=== PATIENT | female | born 1980 | race Caucasian/White ===

== ENCOUNTER 2017-02-21 10:37 | Emergency (ER) | payer SELFPAY ==
--- NOTE | 2017-02-26 07:21 | ER ---
ADMIT: 02/21/2017 RM/LOC: ER [facility] MR#: [id number] [facility] [address] [place] [id number] [address] [place] [address] Emergency Room Report SEX: F AGE: 36 : 1980 DATE: 02/21/2017 TIME: 1037 hours. Please refer to my T-sheet for complete H and P. Briefly, the patient comes in with left hip pain for 2-1/2 weeks. It starts in the buttocks and kind of moves to lateral and medial aspect of her thigh. No trauma, but she did go for a long car ride. No other complaints. It does hurt when she walks. She has not had a fever or chills. PHYSICAL EXAMINATION: VITAL SIGNS: Stable. Temp 97.9. GENERAL: No acute distress. HEENT: Grossly normal. ABDOMEN: Soft. EXTREMITIES: Her left leg hurts right over sciatic outlet, extends laterally and medial. There is no gross deformity. No redness or erythema. No swelling. She is neurovascularly intact distally. EMERGENCY DEPARTMENT COURSE: I gave her 2 [place] 5 p.o. She is ready for discharge. ASSESSMENT: Left sciatica. PLAN: Prednisone 20 b.i.d. for 5 days. Return if worse. Avoid putting pressure in the area. [place] 5, I gave her 15. Follow up with [address] [place] [address]. Carson Bird MD/ elva JOB #: [id number] CC: Carson Bird MD, Attending Physician UNKNOWN, Family Physician
== END 2017-02-21 11:20 | disposition home or self-care (01) ==
LOC: ER 10:37
DX: M54.32 Sciatica, left side (principal); Z88.0 Allergy status to penicillin; Z88.1 Allergy status to other antibiotic agents; Z88.8 Allergy status to other drugs, medicaments and biological substances; Z79.899 Other long term (current) drug therapy; Z87.891 Personal history of nicotine dependence

== ENCOUNTER → 2017-04-13 | Outpatient (CLI) | payer OTHER | END | disposition home or self-care (01) | LOC: PTH.S 10:04 | DX: I10 Essential (primary) hypertension (principal) ==

== ENCOUNTER 2017-05-08 17:34 | Emergency (ER) | payer OTHER ==
--- NOTE | 2017-05-11 12:41 | ER ---
ADMIT: 05/08/2017 RM/LOC: ER [facility] MR#: [id number] [id number] RISHI VIDYA [address] [place] [address] Emergency Room Report SEX: F AGE: 36 : 1980 DATE: 05/08/2017 HISTORY OF PRESENT ILLNESS: The patient is a 36-year-old, complaining of left shoulder blade pain about a week now. She kind of fell over her couch, tried to hold her son with her left hand and now she has pain that is when she takes a deep breath, she has discomfort. She is right-handed. ALLERGIES: SHE HAS MULTIPLE ALLERGIES. SEE T-SHEET FOR THAT. MILDLY ANXIOUS. PHYSICAL EXAMINATION: Normal. IMAGING: X-ray of the shoulder blade, negative. CLINICAL IMPRESSION: Left shoulder trapezius and thoracic spine sprain. The patient given a shot of Norflex and lidocaine patch to the affected area with a prescription. Follow up with primary provider. JOHNSON Reyna / Ori Harris MD / bellel JOB #: [id number] CC: Ori Harris MD, Attending Physician Geronimo Cantu MD, Family Physician
== END 2017-05-08 19:55 | disposition home or self-care (01) ==
LOC: ER 17:34
DX: S46.912A Strain of unspecified muscle, fascia and tendon at shoulder and upper arm level, left arm, initial encounter (principal); X58.XXXA Exposure to other specified factors, initial encounter